=== PATIENT | male | born 1950 | race Caucasian/White ===

== ENCOUNTER 2023-06-17 12:02 | Emergency (ER) | payer MEDICARE, MEDICAID ==
[~2023-06-17] VITALS: Ht 167.6 cm; Wt 70.9 kg
[~2023-06-17 12:02] MED LIST: ALBU8HFA PO; RANI150T8 PO
[2023-06-17] MEDS: normal saline 1000ML IV soln IVB ONE (13:41)
[2023-06-17 13:49] LABS: BASOPHILS % (AUTO) 0.5 % (0-1); EOSINOPHILS # (AUTO) 0.1 X10'3 (0-0.9); EOSINOPHILS % (AUTO) 0.7 % (0-6); HEMOGLOBIN 14.5 g/dl (14.0-17.9); LYMPHOCYTES # (AUTO) 1.3 X10'3 (1.1-4.8); LYMPHOCYTES % (AUTO) 13.1 % (21-51); MEAN CORPUSCULAR HEMOGLOBIN 32.6 PG (27.0-31.0); MEAN CORPUSCULAR HGB CONC 33.8 g/dL (33.0-36.5); MEAN CORPUSCULAR VOLUME 96.7 FL (78-98); MEAN PLATELET VOLUME 7.6 FL (7.4-10.4); MONOCYTES # (AUTO) 0.6 X10'3 (0-0.9); MONOCYTES % (AUTO) 6.3 % (2-12); NEUTROPHILS # (AUTO) 7.8 X10'3 (1.8-7.7); NEUTROPHILS % (AUTO) 79.4 % (42-75); PLATELET COUNT 258 X10'3 (140-440); RED BLOOD COUNT 4.45 X10'6 (4.70-6.10); RED CELL DISTRIBUTION WIDTH 14.5 % (11.5-14.5); WHITE BLOOD COUNT 9.8 X10'3 (4.5-11.0)
[2023-06-17] MEDS: ketorolac trometh. 30mg/ml inj. IV ONE (13:50)
[2023-06-17 13:55] LABS: BILIRUBIN,URINE NEGATIVE (Neg); CLARITY,URINE CLEAR (Clear); COLOR,URINE YELLOW (Yellow); GLUCOSE, URINE NEGATIVE (Neg); KETONES,URINE NEGATIVE (Neg); LEUKOCYTE ESTERASE ,URINE NEGATIVE (Neg); NITRITES, URINE NEGATIVE (Neg); OCCULT BLOOD,URINE MODERATE (Neg); PROTEIN,URINE NEGATIVE (Neg); UROBILINOGEN,URINE 0.2 E.U/dL (0.2-1.0)
[2023-06-17 13:56] LABS: UA COLLECTION TYPE CLN CATCH MIDSTREAM
[2023-06-17 14:01] LABS: BACTERIA,URINE NONE SEEN /HPF (Neg); SQUAMOUS EPITHELIAL CELL,UR NONE SEEN /LPF (FEW); WBC,URINE 0-4 /HPF (0-4)
[2023-06-17 14:05] LABS: ALBUMIN 3.8 G/DL (3.4-5.0); ANION GAP 8 (8-16); BLOOD UREA NITROGEN 23 MG/DL (7-18); BUN/CREATININE RATIO 23.7 (10.0-20.0); CALCIUM 8.9 MG/DL (8.5-10.1); CHLORIDE 106 MMOL/L (99-107); CREATININE 0.97 MG/DL (0.60-1.10); GLUCOSE 118 MG/DL (70-104); POTASSIUM 4.4 MMOL/L (3.5-5.1); SODIUM 142 MMOL/L (135-145); TOTAL CARBON DIOXIDE 28.3 MMOL/L (24-32); eCRCL 64 ML/MIN; eGFR 77 ML/MIN
[2023-06-17] MEDS ORDERED: OXYC-145 PO (14:40)
[2023-06-17] MEDS ORDERED: FLO0.4C PO (14:40)
[2023-06-17] MEDS ORDERED: NAPR-56 PO (14:40)
[2023-06-17 15:20] VITALS: BP 153/72; PULSE 57; RESP 16; TEMP 98; O2SAT 98
== END 2023-06-17 15:21 | disposition home or self-care (01) ==
LOC: ER 12:03
DX: N23 Unspecified renal colic (principal); Z87.442 Personal history of urinary calculi; Z88.0 Allergy status to penicillin; Z88.8 Allergy status to other drugs, medicaments and biological substances
CPT/HCPCS: 36415; 76770; 80048; 81001; 85025; 96361; 96374; 99285; J1885; J7030; 99284

== ENCOUNTER 2024-11-03 08:33 | Outpatient (CLI) | payer MEDICARE, MEDICAID ==
[~2024-11-03 08:33] MED LIST changes: +OXYC-145 PO
--- NOTE | 2024-11-03 12:53 | RADIOLOGY REPORT ---
CT CT ABDOMEN PELVIS INDICATION: RIGHT LOWER QUADRANT PAIN EXAM DATE: 11/03/2024 08:51 AM COMPARISON: ULTRASOUND OF ABDOMEN on DOS: 07/05/23, US ULTRASOUND KIDNEY NON VASC on DOS: 06/17/23 RADIATION DOSE: CTDIvol: 12 mGy, DLP: 701 mGy*cm PROCEDURE: Helical CT images were obtained of the abdomen and pelvis without IV contrast Sagittal and coronal reconstructions are provided. ORAL CONTRAST: None. ADDITIONAL IMAGES / REFORMATS: None All C T scans at this medical facility are performed using dose modulation techniques as appropriate to a p erformed exam including the following: Automated exposure control was utilized; adjustment of the MA and/or KV according to patient size; and use of iterative reconstruction technique. FINDINGS: LUNG BASE: Normal. LIVER: 1.2 cm left liver cyst with additional multiple subcentimeter liver cystic lesions. GALLBLADDER AND BILIARY TREE: No calcified gallstones. Normal caliber wall. No intra- or extrahepatic biliary ductal dilation. PANCREAS: Normal. SPLEEN: Normal. BOWEL: Normal. Normal appendix. ADRENALS: Normal. KIDNEYS AND URETER: Multiple kidney cysts measures up to 2.3 cm on the left. BLADDER: Normal. REPRODUCTIVE ORGANS: Normal. LYMPH NODES:No lymphadenopathy. PERITONEUM: No ascites or free air. No other fluid collection. VESSELS: Scattered atherosclerotic calcifications are noted. RETROPERITONEUM: Normal. ABDOMINAL WALL: Normal. BONES: Scattered osseous degenerative changes are noted. IMPRESSION: No acute intraabdominal abnormality.
== END 2024-11-03 23:59 | disposition home or self-care (01) ==
LOC: RAD 08:33
PROVIDERS: ATTEND Nurse Practitioner Family
DX: I25.10 Atherosclerotic heart disease of native coronary artery without angina pectoris (principal); R10.31 Right lower quadrant pain; N28.1 Cyst of kidney, acquired; M47.814 Spondylosis without myelopathy or radiculopathy, thoracic region
CPT/HCPCS: 74176

== ENCOUNTER 2024-11-06 08:34 | Outpatient (CLI) | payer MEDICARE, MEDICAID ==
--- NOTE | 2024-11-06 10:03 | RADIOLOGY REPORT ---
Exam: US US NON VASCULAR Date: 11/06/2024 08:51 AM Clinical History: LEFT LOWER QUADRANT PAIN Comparison: ULTRASOUND OF ABDOMEN on DOS: 07/05/23, US ULTRASOUND KIDNEY NON VASC on DOS: 06/17/23 Technique: Targeted sonographic evaluation of the soft tissues of the bilateral lower quadrants was obtained uti lizing grayscale and color Doppler imaging. Findings/Impression: There is suggestion of a fat containing hernia in the left lower quadrant measuring 1.9 x 1.7 x 1.3 c m. No definite hernia is visualized in the right lower quadrant.
== END 2024-11-06 23:59 | disposition home or self-care (01) ==
LOC: RAD 08:34
PROVIDERS: ATTEND Nurse Practitioner Family
DX: R10.32 Left lower quadrant pain (principal)
CPT/HCPCS: 76705